=== PATIENT | male | born 1970 | race African-American/Black ===

== ENCOUNTER 2022-11-21 08:30 | Inpatient (IN) | payer OTHER, MEDICAID ==
[~2022-11-21] VITALS: Ht 175.3 cm; Wt 79.4 kg
[~2022-11-21 08:30] MED LIST: AMOX125S12 PO; BENA-8 PO; HYDROXYCHLOROQUINE PO
[2022-11-21 09:11] LABS: BASOPHILS % 0.6 % (0.0-2.0); DIFFERENTIAL COMMENT 0; EOSINOPHILS % 0.2 % (0.0-5.0); HEMATOCRIT. 39.9 % (42.0-52.0); HEMOGLOBIN. 13.8 g/dL (14.0-18.0); LYMPHOCYTES % 14.7 % (20.0-50.0); MEAN CORPUSCULAR HEMOGLOBIN 29.3 pg (28.0-32.0); MEAN CORPUSCULAR HGB CONC 34.5 g/dL (31.0-37.0); MEAN CORPUSCULAR VOLUME 84.9 fL (80.0-94.0); MEAN PLATELET VOLUME 9.1 fl (7.4-10.4); MONOCYTES % 9.6 % (2.0-8.0); NEUTROPHILS % 74.9 % (40.0-76.0); PLATELET 264 x1000/uL (130-400); RED CELL DISTRIBUTION WIDTH 14.9 % (11.6-14.6); WHITE BLOOD COUNT 4.3 x1000/uL (4.5-11.0)
[2022-11-21 09:18] LABS: CHLORIDE 112 mEq/L (98-107); INDEX HEMOLYSI 1 (1-3); INDEX ICTERIC 1 (1-4); INDEX LIPEMIC 1 (1-3); POTASSIUM 3.8 mEq/L (3.5-5.1); SODIUM 139 mEq/L (136-145)
[2022-11-21 09:29] LABS: ALANINE AMINOTRANSFERASE 27 IU/L (13-61); ALBUMIN 3.9 g/dL (3.4-5.0); ASPARTATE AMINOTRANSFERASE 23 IU/L (15-37); BILIRUBIN TOTAL 0.5 mg/dL (0.1-1.0); CALCIUM 8.6 mg/dL (8.5-10.1); CARBON DIOXIDE 22 mEq/L (21-32); CREATININE 0.9 mg/dL (0.6-1.3); GLUCOSE 142 mg/dL (70-105); PROTEIN TOTAL 8.3 g/dL (6.0-8.3); UREA NITROGEN BLOOD 13 mg/dL (7-21)
[2022-11-21 09:35] LABS: TROPONIN I HIGH SENSITIVITY 109 ng/L (<78)
[2022-11-21 09:49] LABS: NT PRO B-TYPE NATRIURETIC PEP 185 pg/mL (5-125)
[2022-11-21] MEDS ORDERED: ASPIRIN 325MG EC TABLET PO ONE (10:00)
[2022-11-21] MEDS ORDERED: ENOXAPARIN 80MG/0.8ML SYR SUBCUT ONE (13:15)
[2022-11-21 22:44] VITALS: BP 170/86; PULSE 69; RESP 20; TEMP 99
[2022-11-21] MEDS ORDERED: HYDROCODONE/ACETAMINOPHEN 5/325MG TABLET PO PRN (23:45)
[2022-11-21] MEDS ORDERED: ACETAMINOPHEN 325MG TABLET PO PRN (23:45)
[2022-11-21] MEDS ORDERED: AMLO10TA4 PO (23:53)
[2022-11-22] VITALS: BP 170/90; PULSE 68; RESP 20; TEMP 99
[2022-11-22] MEDS: CLONIDINE 0.1MG TABLET PO PRN ×2 (00:12→19:16)
[2022-11-22 04:00] VITALS: BP 151/82; PULSE 66; RESP 20; TEMP 98.3
[2022-11-22 05:46] LABS: BASOPHILS % 0.4 % (0.0-2.0); DIFFERENTIAL COMMENT 0; EOSINOPHILS % 2.7 % (0.0-5.0); HEMATOCRIT. 39.1 % (42.0-52.0); HEMOGLOBIN. 13.4 g/dL (14.0-18.0); LYMPHOCYTES % 38.5 % (20.0-50.0); MEAN CORPUSCULAR HEMOGLOBIN 29.6 pg (28.0-32.0); MEAN CORPUSCULAR HGB CONC 34.3 g/dL (31.0-37.0); MEAN CORPUSCULAR VOLUME 86.1 fL (80.0-94.0); MEAN PLATELET VOLUME 9.1 fl (7.4-10.4); MONOCYTES % 13.4 % (2.0-8.0); PLATELET 237 x1000/uL (130-400); RED BLOOD CELL COUNT 4.54 mill/uL (4.7-6.1); RED CELL DISTRIBUTION WIDTH 15.5 % (11.6-14.6); WHITE BLOOD COUNT 2.5 x1000/uL (4.5-11.0)
[2022-11-22 05:50] LABS: CHLORIDE 113 mEq/L (98-107); INDEX HEMOLYSI 1 (1-3); INDEX ICTERIC 1 (1-4); INDEX LIPEMIC 1 (1-3); POTASSIUM 3.8 mEq/L (3.5-5.1); SODIUM 135 mEq/L (136-145)
[2022-11-22 06:12] LABS: ALANINE AMINOTRANSFERASE 19 IU/L (13-61); ALBUMIN 3.4 g/dL (3.4-5.0); ASPARTATE AMINOTRANSFERASE 20 IU/L (15-37); BILIRUBIN TOTAL 0.3 mg/dL (0.1-1.0); CALCIUM 8.3 mg/dL (8.5-10.1); CARBON DIOXIDE 23 mEq/L (21-32); CHOLESTEROL 146 mg/dL (<200); CREATINE KINASE 179 IU/L (39-308); CREATINE KINASE MB FRACTION 2.4 ng/mL (0.5-3.6); CREATININE 0.9 mg/dL (0.6-1.3); GLUCOSE 93 mg/dL (70-105); HDL CHOLESTEROL 72 mg/dL (40-59); LDL CHOLESTEROL 78 mg/dL (5-100); PROTEIN TOTAL 7.3 g/dL (6.0-8.3); TRIGLYCERIDE 52 mg/dL (0-150); UREA NITROGEN BLOOD 14 mg/dL (7-21)
[2022-11-22 08:00] VITALS: BP 152/98; PULSE 70; RESP 17; TEMP 96.4
[2022-11-22 08:17] LABS: TROPONIN I HIGH SENSITIVITY 90 ng/L (<78)
[2022-11-22 10:11] LABS: *AMPHETAMINES SCREEN URINE NEGATIVE (NEGATIVE); *BARBITURATES SCREEN URINE NEGATIVE (NEGATIVE); *BENZODIAZEPINES SCREEN URINE NEGATIVE (NEGATIVE); *COCAINE SCREEN URINE NEGATIVE (NEGATIVE); CANNABINOID URINE SCREEN PRESUMTIVE POSITIVE (NEGATIVE); ECSTASY MDMA SCREEN URINE NEGATIVE (NEGATIVE); METHADONE URINE SCREEN NEGATIVE (NEGATIVE); OPIATES URINE SCREEN NEGATIVE (NEGATIVE); PHENCYCLIDINE URINE SCREEN NEGATIVE (NEGATIVE)
[2022-11-22] MEDS: ASPIRIN 81MG TABLET PO SCH (11:21)
[2022-11-22] MEDS: AMLODIPINE 10MG TABLET PO SCH (11:21)
[2022-11-22] MEDS: ENOXAPARIN 40MG/0.4ML SYR SUBCUT SCH (11:23)
[2022-11-22 12:00] VITALS: BP 159/93; PULSE 105; PULSE 70; RESP 16; RESP 20; TEMP 97
[2022-11-22 16:00] VITALS: BP 154/104; PULSE 74; RESP 17; TEMP 96.7
[2022-11-22 17:33] LABS: CREATINE KINASE MB FRACTION 1.9 ng/mL (0.5-3.6)
[2022-11-22 20:00] VITALS: BP 141/101; PULSE 75; RESP 20; TEMP 97.4
[2022-11-23] VITALS: BP 155/105; PULSE 69; RESP 20; TEMP 97.3
[2022-11-23 04:00] VITALS: BP 108/54; PULSE 53; RESP 20; TEMP 97.1
[2022-11-23 08:00] VITALS: BP 136/102; PULSE 67; RESP 20; TEMP 98.2
[2022-11-23] MEDS: ASPIRIN 81MG TABLET PO SCH (09:33)
[2022-11-23] MEDS: ENOXAPARIN 40MG/0.4ML SYR SUBCUT SCH (09:33)
[2022-11-23] MEDS: AMLODIPINE 10MG TABLET PO SCH (09:33)
[2022-11-23 12:00] VITALS: BP 164/100; PULSE 75; RESP 20; TEMP 98.3
[2022-11-23] MEDS ORDERED: DILTIAZEM HCL 30MG TABLET PO SCH (12:00)
[2022-11-23] MEDS ORDERED: DILT180C66 MT (13:28)
[2022-11-23 15:08] VITALS: BP 164/100; PULSE 75; TEMP 98.3; O2SAT 100
== END 2022-11-23 19:16 | disposition home or self-care (01) | DRG 281 ==
LOC: ER 08:33 → 8WST 12:35 → EDBEDREQTM 12:39 → EDBEDREQ 12:39
PROVIDERS: ADMIT Internal Medicine; ATTEND Internal Medicine
DX: I21.4 Non-ST elevation (NSTEMI) myocardial infarction (principal); I47.1 Supraventricular tachycardia; I10 Essential (primary) hypertension; J44.9 Chronic obstructive pulmonary disease, unspecified; K57.90 Diverticulosis of intestine, part unspecified, without perforation or abscess without bleeding; L93.0 Discoid lupus erythematosus; F17.210 Nicotine dependence, cigarettes, uncomplicated
CPT/HCPCS: 36415; 71045; 80053; 80061; 80305; 82550; 82553; 83735; 83880; 84443; 84484; 85025; 93005; 93306; 99285; J1650

== ENCOUNTER 2023-10-09 10:35 | Emergency (ER) | payer OTHER, MEDICAID ==
[~2023-10-09] VITALS: Ht 182.9 cm; Wt 80.0 kg
[~2023-10-09 10:35] MED LIST changes: -AMOX125S12 PO; +DILT180C66 MT
[2023-10-09 10:37] VITALS: TEMP 98.9; O2SAT 99
[2023-10-09 12:22] LABS: BASOPHILS % 0.7 % (0.0-2.0); EOSINOPHILS % 0.1 % (0.0-5.0); HEMOGLOBIN. 13.2 g/dL (14.0-18.0); LYMPHOCYTES % 28.5 % (20.0-50.0); MEAN CORPUSCULAR HGB CONC 33.8 g/dL (31.0-37.0); MEAN CORPUSCULAR VOLUME 85.9 fL (80.0-94.0); NEUTROPHILS % 61.7 % (40.0-76.0); RED BLOOD CELL COUNT 4.54 mill/uL (4.7-6.1); RED CELL DISTRIBUTION WIDTH 15.4 % (11.6-14.6); WHITE BLOOD COUNT 3.1 x1000/uL (4.5-11.0)
[2023-10-09 12:25] LABS: CHLORIDE 109 mEq/L (98-107); POTASSIUM 3.7 mEq/L (3.5-5.1); SODIUM 140 mEq/L (136-145)
[2023-10-09 12:26] LABS: CARBON DIOXIDE 27 mEq/L (21-32)
[2023-10-09 12:27] LABS: CALCIUM 9.3 mg/dL (8.7-10.4); DIFFERENTIAL COMMENT 1
[2023-10-09] MEDS ORDERED: ASPI-1497 MT (12:30)
[2023-10-09] MEDS ORDERED: ATOR20TA65 MT (12:30)
[2023-10-09] MEDS ORDERED: METO-539 MT (12:30)
[2023-10-09] MEDS ORDERED: PANT40TA51 MT (12:30)
[2023-10-09 12:31] LABS: CREATININE 0.9 mg/dL (0.6-1.3); GLUCOSE 94 mg/dL (70-105); UREA NITROGEN BLOOD 10 mg/dL (9-23)
[2023-10-09 12:34] LABS: TROPONIN I HIGH SENSITIVITY 14 ng/L (3.0-53)
[2023-10-09 13:15] LABS: ADD RBC MORPHOLOGY YES; MEAN PLATELET VOLUME 9.1 fl (7.4-10.4); PLATELET 224 x1000/uL (130-400)
[2023-10-09 13:16] LABS: ANISOCYTOSIS 1+; OVALOCYTES 1+; PLATELET ESTIMATE NORMAL
[2023-10-09 14:25] LABS: TROPONIN I HIGH SENSITIVITY 30 ng/L (3.0-53)
[2023-10-09 15:42] VITALS: BP 163/96; PULSE 79; RESP 16
== END 2023-10-09 16:16 | disposition home or self-care (01) ==
LOC: ER 10:49
DX: I47.10 Supraventricular tachycardia, unspecified (principal); F17.200 Nicotine dependence, unspecified, uncomplicated; F12.90 Cannabis use, unspecified, uncomplicated; I25.2 Old myocardial infarction; I10 Essential (primary) hypertension; Z85.9 Personal history of malignant neoplasm, unspecified
CPT/HCPCS: 36415; 71045; 80048; 84484; 85025; 93005; 99285

== ENCOUNTER 2023-11-20 07:47 | Emergency (ER) | payer OTHER, MEDICAID ==
[~2023-11-20] VITALS: Ht 175.3 cm; Wt 79.0 kg
[~2023-11-20 07:47] MED LIST changes: +ASPI-1497 MT; +ATOR20TA65 MT; +METO-539 MT; +PANT40TA51 MT
[2023-11-20 07:49] VITALS: BP 172/109; PULSE 94; RESP 12; TEMP 98.3; O2SAT 100
[2023-11-20 08:18] LABS: BASOPHILS % 0.4 % (0.0-2.0); DIFFERENTIAL COMMENT 0; HEMATOCRIT. 38.7 % (42.0-52.0); HEMOGLOBIN. 13.1 g/dL (14.0-18.0); LYMPHOCYTES % 8.9 % (20.0-50.0); MEAN CORPUSCULAR HEMOGLOBIN 29.5 pg (28.0-32.0); MEAN CORPUSCULAR HGB CONC 33.9 g/dL (31.0-37.0); MEAN CORPUSCULAR VOLUME 87.1 fL (80.0-94.0); MEAN PLATELET VOLUME 8.7 fl (7.4-10.4); MONOCYTES % 4.4 % (2.0-8.0); NEUTROPHILS % 86.3 % (40.0-76.0); PLATELET 246 x1000/uL (130-400); RED BLOOD CELL COUNT 4.44 mill/uL (4.7-6.1); RED CELL DISTRIBUTION WIDTH 15.1 % (11.6-14.6); WHITE BLOOD COUNT 4.9 x1000/uL (4.5-11.0)
[2023-11-20 08:24] LABS: CHLORIDE 105 mEq/L (98-107); POTASSIUM 4.2 mEq/L (3.5-5.1); SODIUM 137 mEq/L (136-145)
[2023-11-20 08:25] LABS: CALCIUM 9.1 mg/dL (8.7-10.4); CARBON DIOXIDE 24 mEq/L (21-32)
[2023-11-20 08:30] LABS: CREATININE 0.8 mg/dL (0.6-1.3); GLUCOSE 81 mg/dL (70-105); UREA NITROGEN BLOOD 14 mg/dL (9-23)
[2023-11-20 08:31] LABS: TROPONIN I HIGH SENSITIVITY 8 ng/L (3.0-53)
[2023-11-20 10:05] LABS: TROPONIN I HIGH SENSITIVITY 9 ng/L (3.0-53)
== END 2023-11-20 11:31 | disposition home or self-care (01) ==
LOC: ER 07:47
DX: R07.89 Other chest pain (principal); R11.0 Nausea; I10 Essential (primary) hypertension; I25.2 Old myocardial infarction; F12.10 Cannabis abuse, uncomplicated; Z85.9 Personal history of malignant neoplasm, unspecified; Z79.899 Other long term (current) drug therapy
CPT/HCPCS: 36415; 71045; 80048; 84484; 85025; 93005; 99285